=== PATIENT | male | born 1965 | race Caucasian/White ===

== ENCOUNTER 2021-02-17 17:33 | Emergency (ER) | payer SELFPAY ==
[~2021-02-17] VITALS: Ht 185.4 cm; Wt 72.6 kg
[2021-02-17] MEDS ORDERED: KETOROLAC TROMETHAMINE 30 MG/ML VIAL IV STA (17:59)
[2021-02-17] MEDS ORDERED: ULTRAM50 MG PO (18:50)
[2021-02-17 19:04] VITALS: BP 113/80
== END 2021-02-17 18:58 | disposition home or self-care (01) ==
LOC: ER 18:00
DX: S72.001D Fracture of unspecified part of neck of right femur, subsequent encounter for closed fracture with routine healing (principal); W18.30XD Fall on same level, unspecified, subsequent encounter; F17.210 Nicotine dependence, cigarettes, uncomplicated
CPT/HCPCS: 99283

== ENCOUNTER 2021-03-07 09:15 | Emergency (ER) | payer SELFPAY ==
[~2021-03-07] VITALS: Ht 185.4 cm; Wt 72.6 kg
[~2021-03-07 09:15] MED LIST: ULTRAM50 MG PO
[2021-03-07] MEDS ORDERED: KETOROLAC TROMETHAMINE 60 MG/2 ML VIAL IM ONE (10:15)
[2021-03-07] MEDS ORDERED: HYDROCODONE/APAP 10MG-325MG TAB PO ONE (11:30)
== END 2021-03-07 12:05 | disposition home or self-care (01) ==
LOC: ER 09:19
DX: S72.8X1D Other fracture of right femur, subsequent encounter for closed fracture with routine healing (principal); W19.XXXD Unspecified fall, subsequent encounter; F17.210 Nicotine dependence, cigarettes, uncomplicated
CPT/HCPCS: 99282; J1885